=== PATIENT | male | born 1960 | race American Indian/Alaskan Native ===

== ENCOUNTER 2019-04-23 12:57 | Emergency (ER) | payer OTHER ==
--- NOTE | 2019-04-23 13:10 | Emergency Department Report ---
Blank Doc - Documentation Documentation: This is a 58-year-old male that presents with syncopal episode yesterday. Den eis any neck pain. This initial assessment/diagnostic orders/clinical plan/treatment(s) is/are subject to change based on patient's health status, clinical progression and re- assessment by fellow clinical providers in the ED. Further treatment and workup at subsequent clinical providers discretion. Patient/guardians urged not to elope from the ED as their condition may be serious if not clinically assessed and managed. Initial orders include: 1- Patient sent to [facility] for further evaluation and treatment 2- CT head/facial bones 4- labs 5- EKG
--- NOTE | 2019-04-23 13:47 | Cat Scan Report ---
PROCEDURE: CT HEAD/BRAIN WO CON TECHNIQUE: Computerized tomography of the head was performed without contrast material. CT DOSE LENGTH PRODUCT: 1035.5 mGycm HISTORY: Syncope, FELL FACE FORWARD, INJURING LIP COMPARISONS: None . FINDINGS: No CT evidence of intracranial mass, hemorrhage, acute territorial infarction, or hydrocephalus. Intr acranial arteries are symmetric in density. There is facial soft tissue swelling. Calvarium is intact . Deformity of the right medial orbital wall appears chronic. Mastoids are aerated. IMPRESSION: No CT evidence of acute intracranial abnormality . This document is electronically signed by Julissa Gary MD., April 23 2019 01:45:40 PM ET
--- NOTE | 2019-04-23 14:06 | Cat Scan Report ---
PROCEDURE: CT FACIAL BONES WO CON TECHNIQUE: Computerized tomography of the facial bones and soft tissues with axial and coronal secti ons performed from the cranial aspect of the frontal sinuses to the caudal portion of the mandible wi thout contrast material. Automated exposure control, adjustment of mA and/or kV according to patient size, or iterative reconstruction dose optimization techniques were utilized. CT DOSE LENGTH PRODUCT: 611.3 mGycm HISTORY: syncope. FELL FACE FORWARD, INJURING LIP COMPARISONS: None . FINDINGS: There is cortical deformity of the bilateral nasal bones, with overlying soft tissue swelling. Findin gs could be related to acute minimally displaced nasal bone fractures if there is point tenderness. T emporomandibular joints are intact. There are osteoarthritic changes of the right temporomandibular j oint. Paranasal sinuses and mastoids are aerated. IMPRESSION: Cortical irregularity of the bilateral nasal bones, which may be related to acute fractures if there is point tenderness. No other areas are suspicious for fracture. This document is electronically signed by Julissa Gary MD., April 23 2019 02:04:01 PM ET
[2019-04-23 14:07] LABS: Basophils % (Auto) 0.3 % (0.0-1.8); Eosinophils % (Auto) 0.2 % (0.0-4.3); Hematocrit 41.8 % (35.5-45.6); Hemoglobin 14.4 gm/dl (11.8-15.2); Lymphocytes # (Auto) 1.2 K/mm3 (1.2-5.4); Lymphocytes % (Auto) 14.8 % (13.4-35.0); Mean Corpuscular HGB Conc 34 % (32-34); Mean Corpuscular Volume 94 fl (84-94); Monocytes # (Auto) 0.8 K/mm3 (0.0-0.8); Monocytes % (Auto) 9.1 % (0.0-7.3); Platelet Count 174 K/mm3 (140-440); Red Blood Count 4.46 M/mm3 (3.65-5.03); Red Cell Distribution Width 13.6 % (13.2-15.2)
[2019-04-23 14:32] LABS: Alanine Aminotransferase 126 units/L (7-56); Albumin 4.7 g/dL (3.9-5); BUN/Creatinine Ratio 8; Blood Urea Nitrogen 7 mg/dL (9-20); Hemolysis Index 12
[2019-04-23 14:33] LABS: Partial Thromboplastin Time 29.6 Sec. (24.2-36.6)
--- NOTE | 2019-04-23 16:06 | Ultrasound Report ---
PROCEDURE: US ABDOMEN LIMITED TECHNIQUE: Real-time sonography was performed of the right upper quadrant with image documentation. HISTORY: abd pain, elevated liver enzymes COMPARISONS: None . FINDINGS: Examination of the gallbladder demonstrates no evidence for gallstones, distention, wall thickening, or pericholecystic fluid. However, there are numerous adherent echogenic nonmobile nonshadowing foci in the gallbladder, likely polyps. The largest 3 measure 5 x 2 x 4 mm, 3 x 2 x 1 mm, and 2 x 2 x 3 mm . No sonographic Rowe's sign is elicited. Common bile duct is normal in diameter measuring 3.5 mm. The liver is mildly heterogeneous in echogenicity without focal abnormality or intrahepatic biliary d ilatation. The pancreas is normal in thickness without focal abnormality or pancreatic duct dilatation. The right kidney is normal in size without calculi or hydronephrosis. The right measures 9.8 cm in c raniocaudal length. The proximal aorta measures 1.8 cm in maximum diameter. IMPRESSION: 1. Numerous echogenic nonshadowing nonmobile foci along the gallbladder wall. Statistically, these ar e likely polyps rather than adherent gallstones. 2. Liver is mildly heterogeneous which may suggest underlying parenchymal disease This document is electronically signed by Kristyn Cabrera MD., April 23 2019 04:04:13 PM ET
[2019-04-23 16:53] LABS: Bilirubin,Urine NEG (Negative); Blood,Urine SM (Negative); Color,Urine Yellow (Yellow); Hyaline Casts,Urine 1 /LPF; Mucus,Urine 3+ /HPF; Urobilinogen,Urine < 2.0 mg/dL (<2.0)
[2019-04-23 16:57] LABS: Amphetamine Screen,Urine PRESUMPTIVE NEGATIVE; Benzodiazepines Screen,Urine PRESUMPTIVE NEGATIVE; Cannabinoid Screen,Urine PRESUMPTIVE NEGATIVE; Cocaine Screen,Urine PRESUMPTIVE NEGATIVE; Methadone Screen,Urine PRESUMPTIVE NEGATIVE; Opiate Screen,Urine PRESUMPTIVE NEGATIVE
--- NOTE | 2019-04-23 17:13 | Emergency Department Report ---
HPI - General Chief Complaint: Syncope Time Seen by Provider: 04/23/19 13:08 - HPI HPI: 58-year-old -[place] male presents to the emergency department after having an episode last night in the bathroom where he passed out, fell, and hit his head and face. The patient says that he just got up from sleep to go and use the bathroom when this occurred. The patient says that he has an infected tooth that has been going on for many months or years and wants to be checked out to make sure that it has not caused any systemic infection. He has some mild discomfort to his nose, pain to the left elbow, left side of the rib cage, and the left knee, from the fall. Patient denies any other significant past medical history. He denies any illicit drug use. He is a tobacco smoker and admits to some daily alcohol consumption. He does not have a primary care physician. Recent travel or sick contacts at home. He says that he has an appointment with a dentist coming up regarding his tooth and he has been on antibiotics. ED Past Medical Hx - Past Medical History Previous Medical History?: Yes Additional medical history: fall04-22-2019 - Surgical History Past Surgical History?: Yes Additional Surgical History: right wrist fx - Social History Smoking Status: Current Every Day Smoker Substance Use Type: Alcohol, Marijuana, Prescribed - Medications Home Medications: Home Medications Medication Instructions Recorded Confirmed Last Taken Type Diclofenac Sodium 75 mg PO BID #20 tablet. 08/12/16 Unknown Rx HYDROcodone/APAP 5-325 [[place] 1 each PO Q6HR PRN #10 tablet 08/12/16 Unknown Rx 5/325] ED Review of Systems ROS: Stated complaint: WEAKNESS/DENTAL INFECTION Other details as noted in HPI Comment: All other systems reviewed and negative Constitutional: denies: chills, fever Eyes: denies: eye pain, vision change ENT: denies: ear pain, throat pain Respiratory: denies: cough, shortness of breath Cardiovascular: syncope. denies: chest pain, palpitations Gastrointestinal: denies: abdominal pain, vomiting Genitourinary: denies: dysuria, discharge Musculoskeletal: arthralgia, myalgia. denies: back pain Skin: denies: rash, lesions Neurological: denies: headache, numbness, paresthesias Physical Exam - Physical Exam Vital Signs: Vital Signs 04/23/19 04/23/19 13:02 13:08 Temperature 98.4 F 98.4 F Pulse Rate 94 H 89 Respiratory 18 18 Rate Blood Pressure 99/60 Blood Pressure 106/61 [Right] O2 Sat by Pulse 98 98 Oximetry Physical Exam: GENERAL: The patient is well-developed well-nourished. HENT: Normocephalic. Atraumatic. Patient has moist mucous membranes. Oropharynx is clear. Patient has multiple dental caries and the right central incisor appears necrotic. EYES: Extraocular motions are intact. Pupils equal reactive to light bilaterally. No nystagmus. NECK: Supple. Trachea is midline. CHEST/LUNGS: Clear to auscultation. There is no respiratory distress noted. There is some tenderness to palpation along the left chest/rib wall. No crepitus or deformity. HEART/CARDIOVASCULAR: Regular. There is no tachycardia. There is no murmur. ABDOMEN: Abdomen is soft, nontender. Patient has normal bowel sounds. There is no abdominal distention. SKIN: There is some swelling over the nasal bridge with 2 small abrasions. NEURO: The patient is awake, alert, and oriented. The patient is cooperative. The patient has no focal neurologic deficits. The patient has normal speech. MUSCULOSKELETAL: There is some tenderness to palpation of the left knee but negative anterior and posterior drawer test and no laxity on valgus or varus stress. There is no limitation range of motion. Cranial nerves II through XII grossly intact. BACK: No midline thoracic or lumbar tenderness to palpation, step-off or deformity. ED Course Vital Signs 04/23/19 04/23/19 13:02 13:08 Temperature 98.4 F 98.4 F Pulse Rate 94 H 89 Respiratory 18 18 Rate Blood Pressure 99/60 Blood Pressure 106/61 [Right] O2 Sat by Pulse 98 98 Oximetry ED Medical Decision Making - Lab Data Result diagrams: 04/23/19 13:38 04/23/19 13:38 - EKG Data -: EKG Interpreted by Me EKG shows normal: sinus rhythm, axis, intervals, QRS complexes, ST-T waves Rate: normal - EKG Data When compared to previous EKG there are: previous EKG unavailable Interpretation: normal EKG - Radiology Data Radiology results: report reviewed, image reviewed interpreted by me: Chest x-ray does not show any acute process. There are no pleural effusions, obvious pneumonia and there is no pneumothorax. There are no rib fractures. X-ray of the left knee does not show any fracture, dislocation or any acute process. PROCEDURE: CT HEAD/BRAIN WO CON TECHNIQUE: Computerized tomography of the head was performed without contrast material. CT DOSE LENGTH PRODUCT: 1035.5 mGycm HISTORY: Syncope, FELL FACE FORWARD, INJURING LIP COMPARISONS: None . FINDINGS: No CT evidence of intracranial mass, hemorrhage, acute territorial infarction, or hydrocephalus. Intracranial arteries are symmetric in density. There is facial soft tissue swelling. Calvarium is intact. Deformity of the right medial orbital wall appears chronic. Mastoids are aerated. IMPRESSION: No CT evidence of acute intracranial abnormality . PROCEDURE: CT FACIAL BONES WO CON TECHNIQUE: Computerized tomography of the facial bones and soft tissues with axial and coronal sections performed from the cranial aspect of the frontal sinuses to the caudal portion of the mandible without contrast material. Automated exposure control, adjustment of mA and/or kV according to patient size, or iterative reconstruction dose optimization techniques were utilized. CT DOSE LENGTH PRODUCT: 611.3 mGycm HISTORY: syncope. FELL FACE FORWARD, INJURING LIP COMPARISONS: None . FINDINGS: There is cortical deformity of the bilateral nasal bones, with overlying soft tissue swelling. Findings could be related to acute minimally displaced nasal bone fractures if there is point tenderness. Temporomandibular joints are intact. There are osteoarthritic changes of the right temporomandibular joint. Paranasal sinuses and mastoids are aerated. IMPRESSION: Cortical irregularity of the bilateral nasal bones, which may be related to acute fractures if there is point tenderness. No other areas are suspicious for fracture. PROCEDURE: US ABDOMEN LIMITED TECHNIQUE: Real-time sonography was performed of the right upper quadrant with image documentation. HISTORY: abd pain, elevated liver enzymes COMPARISONS: None . FINDINGS: Examination of the gallbladder demonstrates no evidence for gallstones, distention, wall thickening, or pericholecystic fluid. However, there are numerous adherent echogenic nonmobile nonshadowing foci in the gallbladder, likely polyps. The largest 3 measure 5 x 2 x 4 mm, 3 x 2 x 1 mm, and 2 x 2 x 3 mm. No sonographic Rowe's sign is elicited. Common bile duct is normal in diameter measuring 3.5 mm. The liver is mildly heterogeneous in echogenicity without focal abnormality or intrahepatic biliary dilatation. The pancreas is normal in thickness without focal abnormality or pancreatic duct dilatation. The right kidney is normal in size without calculi or hydronephrosis. The right measures 9.8 cm in craniocaudal length. The proximal aorta measures 1.8 cm in maximum diameter. IMPRESSION: 1. Numerous echogenic nonshadowing nonmobile foci along the gallbladder wall. Statistically, these are likely polyps rather than adherent gallstones. 2. Liver is mildly heterogeneous which may suggest underlying parenchymal disease - Medical Decision Making This patient presents to the emergency department with a syncopal episode the previous night with a fall in which she has had an presents with some facial pain, left knee pain and left-sided rib pain. CT of the head did not show any bleed, shift, mass, ischemia, or any other acute process. CT of the facial bones shows bilateral nasal bone fracture. X-ray of the chest and left-sided rib cage does not show any rib fracture, pneumothorax, or any other acute process. X-ray of the left knee does not show any fracture, dislocation, or any acute process. Patient's labs were mostly unremarkable except for elevated LFTs. For this reason an ultrasound was done that shows some possible mild jesse er parenchymal disease and what appears to be some gallbladder polyps. The patient has been awake and alert throughout his ED course and has been no further episodes of dizziness, syncope or any neurological deficits. He is awake, alert, oriented, without any focal, motor or sensory deficits and his cranial nerves are intact. He was seen ambulatory in the emergency department and both appears and feels stable. He appears safe for discharge home at this time. Vital signs when stable throughout his ED course. He was given a referral for primary care and orthopedist and gastroenterology. The patient admits to daily alcohol consumption and therefore I do not feel comfortable prescribing any type of narcotic pain medication or sedating muscle relaxer, and the patient was told to avoid Tylenol due to his elevated LFTs. He will return to the ER with any worsening of his symptoms or any acute distress. - Differential Diagnosis dysrhythmia, brain bleed, TIA, nasal fracture, cirrhosis Critical Care Time: No Critical care attestation.: If time is entered above; I have spent that time in minutes in the direct care of this critically ill patient, excluding procedure time. ED Disposition Clinical Impression: Rib pain on left side, Elevated liver enzymes Syncope Qualifiers: Syncope type: unspecified Qualified Code(s): R55 - Syncope and collapse Fall Qualifiers: Encounter type: initial encounter Qualified Code(s): W19.XXXA - Unspecified fall, initial encounter Nasal bone fracture Qualifiers: Encounter type: initial encounter Fracture type: closed Qualified Code(s): S02.2XXA - Fracture of nasal bones, initial encounter for closed fracture Left knee pain Qualifiers: Chronicity: acute Qualified Code(s): M25.562 - Pain in left knee Disposition: DC-01 TO HOME OR SELFCARE Is pt being admited?: No Condition: Stable Instructions: Syncope (ED), Knee Pain (ED), Arthralgia (ED), Fall Prevention (ED) Additional Instructions: Please follow up with a primary care physician in the next few days. I am also giving you a referral for a local orthopedist, Dr. Cardoza, to follow up regarding your knee, wrist, and joint pains. I am giving you a referral for Dr. Berkowitz, a local automotive maintenance technician, to follow up regarding your elevated liver enzymes. Return to the emergency department with any further episodes of passing out, worsening of your symptoms, any acute distress. Referrals: [facility] [Outside] - 2-3 Days MARIA FERNANDA BERKOWITZ MD [Staff Physician] - 3-5 Days ASHLEE SHAHID MD [Primary Care Provider] - 2-3 Days THERESE SHERMAN MD [Staff Physician] - 2-3 Days HASEEB CARDOZA MD [Staff Physician] - 2-3 Days
[2019-04-23 17:14] VITALS: BP 104/67
--- NOTE | 2019-04-23 17:16 | XRay Report ---
PROCEDURE: XR KNEE 3V LT TECHNIQUE: Left knee, 4 views HISTORY: left knee pain COMPARISONS: None available FINDINGS: No acute fracture or dislocation. No focal osseous lesions. No joint effusion. IMPRESSION: No acute fracture or dislocation. This document is electronically signed by Julissa Gary MD., April 23 2019 05:14:33 PM ET
--- NOTE | 2019-04-23 17:41 | XRay Report ---
PROCEDURE: XR RIBS UNI W PA CHEST 3+V LT TECHNIQUE: 5 views HISTORY: fall, rib pain COMPARISONS: None FINDINGS: No infiltrate, pleural effusion, or pneumothorax seen. The cardiomediastinal silhouette is normal. No evidence of rib fracture. IMPRESSION: No acute abnormality identified. . This document is electronically signed by Osvaldo Best MD., April 23 2019 05:39:34 PM ET
== END 2019-04-23 17:40 | disposition home or self-care (01) ==
LOC: ED 12:57
DX: S02.2XXA Fracture of nasal bones, initial encounter for closed fracture (principal); R55 Syncope and collapse; M25.562 Pain in left knee; R07.81 Pleurodynia; M25.522 Pain in left elbow; R74.8 Abnormal levels of other serum enzymes; F17.200 Nicotine dependence, unspecified, uncomplicated; F12.10 Cannabis abuse, uncomplicated; Z98.890 Other specified postprocedural states; W19.XXXA Unspecified fall, initial encounter; Y93.89 Activity, other specified; Y92.002 Bathroom of unspecified non-institutional (private) residence as the place of occurrence of the external cause; Y99.8 Other external cause status
CPT/HCPCS: 36415; 70450; 70486; 76705; 80053; 80307; 81001; 82140; 84443; 84484; 85025; 85610; 85730; 93005; 93010